=== PATIENT | male | born 1980 | race African-American/Black ===

== ENCOUNTER 2021-07-28 12:52 | Outpatient (REF) | payer SELFPAY ==
[2021-07-28 15:05] LABS: Binax Internal Control QC Valid; Binax Now Covid-19 Ag Negative (Negative)
== END 2021-07-28 12:53 | disposition home or self-care (01) ==
LOC: HO.LAB 12:52
PROVIDERS: Visit Provider Internal Medicine
DX: Z20.822 Contact with and (suspected) exposure to COVID-19 (principal)
CPT/HCPCS: 36415; C9803